=== PATIENT | male | born 1995 | race Caucasian/White ===

== ENCOUNTER 2016-10-17 16:36 | Emergency (ER) | payer OTHER ==
--- NOTE | 2016-10-17 16:44 | EDPHY ---
H & P Time Seen by Provider: 10/17/16 16:53 HPI/ROS: CHIEF COMPLAINT: Self-harm HISTORY OF PRESENT ILLNESS: This patient is a 21 year old male arriving by EMS after his girlfriend called the paramedics to report that he had intentionally cut his left wrist with a steak knife. He states that his girlfriend revealed that she had been cheating on him and he immediately grabbed a kitchen knife and began to cut his left forearm. He tells me that he was feeling "sad, mad, and cynical" and "honestly doesn't know what he was trying to do." He has no history of self harm, depression, or diagnosed mental illness. He reports that had body aches and a fever two days prior to arrival that has since subsided. Today, he denies any discomfort, pain, fever, chills, urinary or abdominal complaints. REVIEW OF SYSTEMS: A ten point review of systems was performed and is negative with the exception of the items mentioned in the HPI. Source: Patient Exam Limitations: No limitations - Medical/Surgical History PMH: 1. Vertebral compression fracture (2014) with subsequent spinal fusion - Social History Smoking Status: Never smoked Alcohol Use: None Drug Use: Marijuana Additional Social History: [employer] student. Smokes marijuana. No alcohol use. - Physical Exam Exam: General Appearance: Alert. Vital signs reviewed. Eyes: Pupils equal and round, no conjunctival injection, no discharge. Anicteric. ENT, Mouth: Mucous membranes are moist, no oropharyngeal erythema or edema. Neck: No lymphadenopathy, supple. Respiratory: Lungs are clear to auscultation; no wheezes, rales, or rhonchi. Cardiovascular: Regular rate and rhythm; no murmur, rub, or gallop. Gastrointestinal: Abdomen is soft and nontender, no masses or organomegaly, bowel sounds normal. Skin: Warm and dry, no rashes on exposed skin, normal color. Back: Nontender to palpation over the thoracolumbar spine. Healed surgical wound extending from cervical to thoracic spine. Extremities: Superficial linear lacerations the anterior aspect of left forearm. Skin tear in the webspace between the thumb and the left index finger. No active bleeding. Neurological: Alert and oriented. Moving all four extremities easily and equally. RADHA. EOMI. Tongue midline. Facial expressions symmetric. 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 Sensation intact to light touch over the left upper extremity. Psychiatric: Normal affect. Constitutional: Initial Vital Signs Temperature (C) 37.2 C 10/17/16 16:36 Heart Rate 88 10/17/16 16:36 Respiratory Rate 16 10/17/16 16:36 Blood Pressure 145/89 H 10/17/16 16:36 O2 Sat (%) 95 10/17/16 16:36 O2 Delivery Mode Room Air Allergies/Adverse Reactions: No Known Allergies Allergy (Verified 10/17/16 16:58) Home Medications: Medication Instructions Recorded NK [No Known Home Meds] 10/17/16 Medical Decision Making ED Course/Re-evaluation: 21-year-old male who impulsively cut his left forearm with a kitchen knife. He then contacted his ex-girlfriend, who is living in his house, and 911 was summoned. At the time of my interview he denies suicidality. He has no psychiatric history. Patient is medically cleared. I find no medical issues that would interfere with a psychiatric evaluation. Psychiatric evaluation was performed and I was notified that he did not meet criteria for admission. I agree that he is not a danger to himself or others. However, it is felt that he should not be in contact with his girlfriend. She is in his apartment, where they have been living. His mother will be arriving tomorrow at 5:00 p.m.. Mr. Nguyen states that he has a friend who lives in [place]. This friend will pick him up and let him stay at his apartment. Dr. Hutchinson is being contacted to see if he is agreeable with this plan. The patient's friend, Peter, arrived in the emergency department. I was able to interview him and see him interact with Mr. Nguyen. Peter is willing to spend the night and day with his friend until his mother arrives. I do not think that Mr. Nguyen is suicidal or a danger to himself. I have lifted the 72 hour hold at 1:05 a.m.. He is being discharged from the emergency department. He plans to follow up with counseling services at [facility]. Differential Diagnosis: I considered a differential diagnosis that includes but is not limited to poor and impulse control, attention getting behavior, depression, suicidality, homicidality, myrna, and psychosis. - Data Points Laboratory Results: Laboratory Results 10/17/16 16:50 10/17/16 16:50 10/17/16 10/17/16 19:50 16:50 WBC 9.06 10^3/uL (3.80-9.50) RBC 5.69 10^6/uL (4.40-6.38) Hgb 17.1 g/dL (13.7-17.5) Hct 48.6 % (40.0-51.0) MCV 85.4 fL (81.5-99.8) MCH 30.1 pg (27.9-34.1) MCHC 35.2 g/dL (32.4-36.7) RDW 12.1 % (11.5-15.2) Plt Count 311 10^3/uL (150-400) MPV 10.4 fL (8.7-11.7) Neut % (Auto) 76.8 H % (39.3-74.2) Lymph % (Auto) 15.3 % (15.0-45.0) Curry % (Auto) 7.0 % (4.5-13.0) Eos % (Auto) 0.3 L % (0.6-7.6) Baso % (Auto) 0.4 % (0.3-1.7) Nucleat RBC Rel Count 0.0 % (0.0-0.2) Absolute Neuts (auto) 6.95 H 10^3/uL (1.70-6.50) Absolute Lymphs (auto) 1.39 10^3/uL (1.00-3.00) Absolute Monos (auto) 0.63 10^3/uL (0.30-0.80) Absolute Eos (auto) 0.03 10^3/uL (0.03-0.40) Absolute Basos (auto) 0.04 10^3/uL (0.02-0.10) Absolute Nucleated RBC 0.00 10^3/uL (0-0.01) Immature Gran % 0.2 % (0.0-1.1) Immature Gran # 0.02 10^3/uL (0.00-0.10) Sodium 145 H mEq/L (134-144) Potassium 3.6 mEq/L (3.5-5.2) Chloride 101 mEq/L (97-110) Carbon Dioxide 25 mEq/l (22-31) Anion Gap 19 mEq/L (8-16) BUN 11 mg/dL (7-23) Creatinine 1.1 mg/dL (0.7-1.3) Estimated GFR > 60 Glucose 113 H mg/dL (70-100) Calcium 10.1 mg/dL (8.5-10.4) Urine Opiates Screen NEGATIVE (NEGATIVE) Urine Barbiturates NEGATIVE (NEGATIVE) Ur Phencyclidine Scrn NEGATIVE (NEGATIVE) Ur Amphetamine Screen NEGATIVE (NEGATIVE) U Benzodiazepines Scrn NEGATIVE (NEGATIVE) Urine Cocaine Screen NEGATIVE (NEGATIVE) U Marijuana (THC) Screen NON-NEGATIVE H (NEGATIVE) Ethyl Alcohol < 10 mg/dL (0-10) Departure - Departure Disposition: Home, Routine, Self-Care Clinical Impression: Depression Qualifiers: Depression Type: reactive depression Qualifier Code: (F32.9) Major depressive disorder, single episode, unspecified Condition: Good Instructions: Depression (ED) Additional Instructions: Follow up as advised by the mental health counselor. Keep the arm wounds clean and dry while they are healing. Referrals: [facility] [Outside] - As per Instructions Report Scribed for: Jessica Douglass Report Scribed by: Violette Martin Date of Report: 10/17/16 Time of Report: 17:05 Physician Review and Approval Statement: 10/17/16 16:44 Portions of this note were transcribed by the manager medical device. I, Dr. Jessica Douglass, personally performed the history, physical exam, and medical decision- making; and confirmed the accuracy of the information in the transcribed note.
[2016-10-17 17:19] LABS: % IMMATURE GRANULYOCYTES 0.2 % (0.0-1.1); ABSOLUTE IMMATURE GRANULOCYTES 0.02 10^3/uL (0.00-0.10); ADD DIFF? NO; ADD MORPH? NO; ADD SCAN? NO; ATYPICAL LYMPHOCYTE FLAG 30 (0-99); FRAGMENT RBC FLAG 0 (0-99); HEMATOCRIT 48.6 % (40.0-51.0); HEMOGLOBIN 17.1 g/dL (13.7-17.5); LEFT SHIFT FLG 0 (0-99); LIPEMIA HEMOLYSIS FLAG 90 (0-99); MEAN CELL HEMOGLOBIN 30.1 pg (27.9-34.1); MEAN CELL HEMOGLOBIN CONCENTR. 35.2 g/dL (32.4-36.7); MEAN CELL VOLUME 85.4 fL (81.5-99.8); MEAN PLATELET VOLUME 10.4 fL (8.7-11.7); PLATELET CLUMPS FLAG 0 (0-99); PLATELET COUNT 311 10^3/uL (150-400); RED BLOOD CELL COUNT 5.69 10^6/uL (4.40-6.38); RED CELL DISTRIBUTION WIDTH 12.1 % (11.5-15.2)
[2016-10-17 17:33] LABS: ANION GAP 19 mEq/L (8-16); CALCIUM 10.1 mg/dL (8.5-10.4); CARBON DIOXIDE 25 mEq/l (22-31); CHLORIDE 101 mEq/L (97-110); CREATININE 1.1 mg/dL (0.7-1.3); ETHANOL SERUM < 10 mg/dL (0-10); GLOMERULAR FILTRATION RATE > 60; GLUCOSE 113 mg/dL (70-100); POTASSIUM 3.6 mEq/L (3.5-5.2); SODIUM 145 mEq/L (134-144)
[2016-10-17 23:40] VITALS: O2SAT 96
[2016-10-18 01:30] VITALS: BP 128/70; PULSE 88; RESP 18; TEMP 97.9
== END 2016-10-18 01:29 | disposition home or self-care (01) ==
DX: F32.9 Major depressive disorder, single episode, unspecified (principal); X78.1XXA Intentional self-harm by knife, initial encounter
CPT/HCPCS: 80305; G0480